=== PATIENT | female | born 1980 | race Two or more races ===

== ENCOUNTER 2023-03-19 15:11 | Inpatient (IN) | payer MEDICAID ==
[~2023-03-19] VITALS: Ht 160 cm; Wt 68.0 kg
[2023-03-19] MEDS ORDERED: IV NS 0.9% 1,000 ML BAG IV ONE (16:00)
[2023-03-19 16:24] LABS: BASOPHILS % (AUTO) 0.4 % (0.0-2.0); EOSINOPHILS % (AUTO) 5.1 % (0.0-6.0); HEMATOCRIT 26 % (33-45); HEMOGLOBIN 8.2 g/dL (11.5-14.8); LYMPHOCYTES # (AUTO) 0.9 K/uL (0.8-4.8); LYMPHOCYTES % (AUTO) 11.5 % (20.0-44.0); MEAN CORPUSCULAR HGB CONC 32 g/dl (31.0-36.0); MEAN CORPUSCULAR VOLUME 93 fL (82-100); MONOCYTES # (AUTO) 0.4 K/uL (0.1-1.30); MONOCYTES % (AUTO) 5.5 % (2.0-12.0); NEUTROPHILS # (AUTO) 6.2 K/uL (1.8-8.9); NEUTROPHILS % (AUTO) 77.5 % (43.0-81.0); PLATELET COUNT (AUTO) 369 K/uL (150-450); RED BLOOD CELL COUNT(AUTO) 2.75 MIL/uL (4.0-5.2); WHITE BLOOD COUNT (AUTO) 8.1 K/uL (4.3-11.0)
[2023-03-19] MEDS ORDERED: Magnesium 1GM/D5W 100ML PREMIX 100 ML IV ONE (16:37)
[2023-03-19] MEDS: Magnesium 1GM/D5W 100ML PREMIX 100 ML IV SCH ×3 (16:40→17:05)
[2023-03-19 16:51] LABS: ALANINE AMINOTRANSFERASE 55 U/L (12-78); ALBUMIN 1.6 g/dL (3.4-5.0); ALKALINE PHOSPHATASE 651 U/L (46-116); ASPARTATE AMINOTRANSFERASE 77 U/L (15-37); BILIRUBIN,DIRECT 0.4 mg/dL (0.0-0.2); BILIRUBIN,TOTAL 0.8 mg/dL (0.2-1.0); CALCIUM, SERUM 8.7 mg/dL (8.5-10.1); CARBON DIOXIDE 29 mmol/L (21-32); CHLORIDE 116 mmol/L (98-107); CREATININE 2.4 mg/dL (0.6-1.3); GLUCOSE 211 mg/dL (74-106); POTASSIUM 4.3 mmol/L (3.5-5.1); SODIUM SERUM 153 mmol/L (136-145); TOTAL PROTEIN, SERUM 6.4 g/dL (6.4-8.2); UREA NITROGEN, BLOOD 71 mg/dL (7-18)
[2023-03-19 16:57] LABS: MAGNESIUM 2.7 mg/dL (1.8-2.4)
[2023-03-19 16:58] LABS: THYROID STIMULATING HORMONE 4.893 uIU/mL (0.358-3.74)
[2023-03-19] MEDS ORDERED: CEFEPIME 1 GM in IV D5W 50 ML IV ONE ×2 (17:00→21:00)
[2023-03-19] MEDS ORDERED: VANCOMYCIN 1 GM in IV D5W 250 ML IV ONE (17:00)
[2023-03-19] MEDS ORDERED: ACETAMINOPHEN ES 500 MG TABLET GT ONE (17:00)
[2023-03-19] MEDS ORDERED: MAGN400T26 PO (17:24)
[2023-03-19] MEDS ORDERED: CARV6.252 PO (17:24)
[2023-03-19] MEDS ORDERED: BUME1TAB9 PO (17:24)
[2023-03-19] MEDS ORDERED: FERR325T23 PO (17:24)
[2023-03-19] MEDS ORDERED: AMLO5TAB4 PO (17:24)
[2023-03-19] MEDS ORDERED: FURO-145 PO (17:24)
[2023-03-19] MEDS ORDERED: HUM10VIA SQ ×2 (17:30)
[2023-03-19 17:43] LABS: BAND % (MANUAL) 6 % (0.0-5.0); EOSINOPHILS % (MANUAL) 3 % (0-4); LYMPHOCYTES % (MANUAL) 18 % (16-48); MONOCYTES % (MANUAL) 3 % (0-11.0); NEUTROPHILS % (MANUAL) 70 (42-76)
[2023-03-19 18:10] LABS: BILIRUBIN,URINE NEGATIVE (NEGATIVE); COLOR,URINE YELLOW (YELLOW); LEUKOCYTE ESTERASE ,URINE TRACE (NEGATIVE); NITRITE, URINE NEGATIVE (NEGATIVE); PH,URINE 6.5 (5.0-8.0); PROTEIN,URINE 3+ mg/dl (NEGATIVE); UGLUCOSE NEGATIVE (NEGATIVE)
[2023-03-19 18:23] LABS: BACTERIA,URINE 1+ /HPF (None Seen); YEAST,URINE Moderate /HPF (None Seen)
[2023-03-19 18:24] LABS: COARSE GRANULAR CASTS,URINE Few /LPF (None Seen); FINE GRANULAR CASTS,URINE RARE /LPF (None Seen)
[2023-03-19] MEDS ORDERED: ACETAMINOPHEN 325 MG TABLET PO PRN (18:30)
[2023-03-19] MEDS ORDERED: DEXTROSE 50%-WATER 50 ML DISP.SYRIN IV PRN (18:30)
[2023-03-19] MEDS ORDERED: *INSULIN REGULAR(HUMULIN R)HUM 100 UNIT/ML VIAL SQ PRN (18:30)
[2023-03-19] MEDS ORDERED: ONDANSETRON HCL/PF 4 MG/2 ML VIAL IVP PRN (18:30)
[2023-03-19] MEDS ORDERED: INSULIN REGULAR, HUMAN 100 UNIT/ML 3 ML VIAL SQ PRN (18:30)
[2023-03-19] MEDS ORDERED: IV D5/0.45 NACL 1,000 ML IV PRN (18:30)
[2023-03-19] MEDS ORDERED: MAGNESIUM HYDROXIDE 30 ML UDC PO PRN (18:30)
[2023-03-19] MEDS ORDERED: Z GUARD REMEDY 4 OZ OINT TP PRN (18:30)
[2023-03-19] MEDS ORDERED: MAG HYDROX/AL HYDROX/SIMETH 30 ML UDC PO PRN (18:30)
[2023-03-19 21:00] VITALS: BP 146/80; TEMP 99.4; O2SAT 95
[2023-03-19 21:50] VITALS: BP 146/80; TEMP 99.4; O2SAT 95
[2023-03-19] MEDS: ENOXAPARIN SODIUM 30 MG/0.3 ML DISP.SYRIN SQ SCH (22:07)
[2023-03-19] MEDS: BLOOD SUGAR DIAGNOSTIC 1 EACH STRIP VI SCH (22:40)
[2023-03-20] VITALS: BP 150/80; TEMP 99; O2SAT 95
[2023-03-20] MEDS ORDERED: PHARMACY TO CHANGE PO MEDS TO GT/NG XX PRN (02:00)
[2023-03-20] MEDS ORDERED: MAGNESIUM HYDROXIDE 30 ML UDC GT PRN (02:13)
[2023-03-20] MEDS ORDERED: MAG HYDROX/AL HYDROX/SIMETH 30 ML UDC GT PRN (02:14)
[2023-03-20] MEDS ORDERED: ACETAMINOPHEN 650 MG/20.3 ML UDC PO PRN (02:30)
[2023-03-20 04:00] VITALS: BP 157/69; TEMP 97.8; O2SAT 97
[2023-03-20 06:00] LABS: BASOPHILS % (AUTO) 0.5 % (0.0-2.0); EOSINOPHILS % (AUTO) 5.8 % (0.0-6.0); HEMATOCRIT 26 % (33-45); HEMOGLOBIN 8.2 g/dL (11.5-14.8); LYMPHOCYTES # (AUTO) 0.8 K/uL (0.8-4.8); LYMPHOCYTES % (AUTO) 9.3 % (20.0-44.0); MEAN CORPUSCULAR HGB CONC 32 g/dl (31.0-36.0); MEAN CORPUSCULAR VOLUME 94 fL (82-100); MONOCYTES # (AUTO) 0.3 K/uL (0.1-1.30); MONOCYTES % (AUTO) 3.9 % (2.0-12.0); NEUTROPHILS # (AUTO) 6.6 K/uL (1.8-8.9); NEUTROPHILS % (AUTO) 80.5 % (43.0-81.0); PLATELET COUNT (AUTO) 366 K/uL (150-450); RED BLOOD CELL COUNT(AUTO) 2.77 MIL/uL (4.0-5.2); WHITE BLOOD COUNT (AUTO) 8.2 K/uL (4.3-11.0)
[2023-03-20 06:19] LABS: CALCIUM, SERUM 8.7 mg/dL (8.5-10.1); CREATININE 2.3 mg/dL (0.6-1.3); MAGNESIUM 2.6 mg/dL (1.8-2.4); PHOSPHORUS 3.9 mg/dL (2.5-4.9); POTASSIUM 4.2 mmol/L (3.5-5.1)
[2023-03-20 07:00] VITALS: BP 170/82; TEMP 99.5; O2SAT 95
[2023-03-20] MEDS ORDERED: GLUCERNA 1.2 1,000 ML BOTTLE GT SCH (07:00)
[2023-03-20] MEDS: BLOOD SUGAR DIAGNOSTIC 1 EACH STRIP VI SCH (07:06)
[2023-03-20] MEDS: AMLODIPINE BESYLATE 5 MG TABLET GT SCH (09:21)
[2023-03-20] MEDS: CARVEDILOL 6.25 MG TABLET GT SCH ×2 (09:21→17:06)
[2023-03-20 11:09] LABS: ALBUMIN 1.6 g/dL (3.4-5.0); BILIRUBIN,DIRECT 0.4 mg/dL (0.0-0.2); PHOSPHORUS 3.9 mg/dL (2.5-4.9); TOTAL PROTEIN, SERUM 6.3 g/dL (6.4-8.2)
[2023-03-20] MEDS ORDERED: IV NS 0.9% 1,000 ML IV PRN (11:30)
[2023-03-20 12:00] VITALS: BP 156/74; TEMP 99.1; O2SAT 94
[2023-03-20] MEDS ORDERED: DEXTROSE 50%-WATER 50 ML DISP.SYRIN IV PRN (12:00)
[2023-03-20] MEDS: BLOOD SUGAR DIAGNOSTIC 1 EACH STRIP IN SCH ×3 (12:46→23:59)
[2023-03-20] MEDS: INSULIN REGULAR, HUMAN 100 UNIT/ML 3 ML VIAL SQ PRN ×2 (12:48→17:31)
[2023-03-20] MEDS ORDERED: IV 1/2NS 1000 ML 1,000 ML IV PRN ×2 (15:30)
[2023-03-20 16:00] VITALS: BP 146/77; TEMP 99; O2SAT 94
[2023-03-20] MEDS: CEFEPIME 2 GM in IV D5W 100 ML IV SCH (17:09)
[2023-03-20] MEDS: VANCOMYCIN HCL 0.75 GM in IV D5W 250 ML IV SCH (18:46)
[2023-03-20 20:00] VITALS: BP 107/59; TEMP 98.2; O2SAT 96
[2023-03-20] MEDS: ENOXAPARIN SODIUM 30 MG/0.3 ML DISP.SYRIN SQ SCH (21:53)
[2023-03-20] MEDS ORDERED: INSULIN NPH/REG 70/30 MIX INJ 100 UNIT/ML VIAL SQ SCH (22:00)
[2023-03-21] MEDS: FLUCONAZOLE (100 MG) 100 MG TABLET PO SCH ×2 (00:12→08:33)
[2023-03-21] MEDS: INSULIN REGULAR, HUMAN 100 UNIT/ML 3 ML VIAL SQ PRN ×4 (00:46→17:50)
[2023-03-21 05:00] VITALS: BP 162/79; TEMP 98; O2SAT 95
[2023-03-21 05:49] LABS: BASOPHILS # (AUTO) 0.1 K/uL (0.0-0.2); BASOPHILS % (AUTO) 0.8 % (0.0-2.0); EOSINOPHILS % (AUTO) 4.9 % (0.0-6.0); HEMATOCRIT 24 % (33-45); HEMOGLOBIN 7.8 g/dL (11.5-14.8); LYMPHOCYTES # (AUTO) 0.8 K/uL (0.8-4.8); LYMPHOCYTES % (AUTO) 9.9 % (20.0-44.0); MEAN CORPUSCULAR HGB CONC 32 g/dl (31.0-36.0); MEAN CORPUSCULAR VOLUME 93 fL (82-100); MONOCYTES # (AUTO) 0.4 K/uL (0.1-1.30); MONOCYTES % (AUTO) 4.5 % (2.0-12.0); NEUTROPHILS # (AUTO) 6.3 K/uL (1.8-8.9); NEUTROPHILS % (AUTO) 79.9 % (43.0-81.0); PLATELET COUNT (AUTO) 352 K/uL (150-450); WHITE BLOOD COUNT (AUTO) 7.9 K/uL (4.3-11.0)
[2023-03-21 06:02] LABS: ALBUMIN 1.5 g/dL (3.4-5.0); BILIRUBIN,TOTAL 0.8 mg/dL (0.2-1.0); CALCIUM, SERUM 8.6 mg/dL (8.5-10.1); CREATININE 2.3 mg/dL (0.6-1.3); MAGNESIUM 2.6 mg/dL (1.8-2.4); PHOSPHORUS 3.6 mg/dL (2.5-4.9); POTASSIUM 3.9 mmol/L (3.5-5.1); TOTAL PROTEIN, SERUM 6.1 g/dL (6.4-8.2)
[2023-03-21 07:00] VITALS: BP 129/71; TEMP 99; O2SAT 94
[2023-03-21] MEDS: BLOOD SUGAR DIAGNOSTIC 1 EACH STRIP IN SCH ×4 (07:50→23:40)
[2023-03-21] MEDS: AMLODIPINE BESYLATE 5 MG TABLET GT SCH (08:33)
[2023-03-21] MEDS: CARVEDILOL 6.25 MG TABLET GT SCH (08:33)
[2023-03-21] MEDS ORDERED: CARVEDILOL 6.25 MG TABLET GT SCH (09:00)
[2023-03-21] MEDS ORDERED: CARVEDILOL 6.25 MG TABLET PO ONE (11:00)
[2023-03-21] MEDS ORDERED: CARVEDILOL 6.25 MG TABLET GT ONE (11:00)
[2023-03-21 11:07] LABS: *ANA ANTI-CENTROMERE B AB <0.2 AI (0.0-0.9); *ANA ANTI-DNA(DS) AB, QN <1 IU/mL (0-9); *ANA ANTI-JO-1 <0.2 AI (0.0-0.9); *ANA ANTICHROMATIN ANTIBODY <0.2 AI (0.0-0.9); *ANA RNP ANTIBODIES 0.4 AI (0.0-0.9); *ANA SJOGREN'S ANTI-SS-A <0.2 AI (0.0-0.9); *ANA SJOGREN'S ANTI-SS-B <0.2 AI (0.0-0.9); *ANAANTI-SCLERODERMA-70 AB <0.2 AI (0.0-0.9); *ANASMITH AB <0.2 AI (0.0-0.9)
[2023-03-21 12:00] VITALS: BP 132/73; TEMP 99; O2SAT 94
[2023-03-21 16:00] VITALS: BP 134/72; TEMP 99; O2SAT 94
[2023-03-21] MEDS ORDERED: IV 1/2NS 1000 ML 1,000 ML IV PRN (16:00)
[2023-03-21 16:05] LABS: BILIRUBIN,URINE NEGATIVE (NEGATIVE); COLOR,URINE YELLOW (YELLOW); LEUKOCYTE ESTERASE ,URINE TRACE (NEGATIVE); NITRITE, URINE NEGATIVE (NEGATIVE); PH,URINE 5.5 (5.0-8.0); PROTEIN,URINE 3+ mg/dl (NEGATIVE); UGLUCOSE NEGATIVE (NEGATIVE); UROBILINOGEN,URINE 0.2 EU/dL (0.2)
[2023-03-21 16:15] LABS: CREATININE, URINE 100.1 MG/DL (30.0-125.0)
[2023-03-21 16:27] LABS: BACTERIA,URINE Few /HPF (None Seen); FINE GRANULAR CASTS,URINE Few /LPF (None Seen); MUCUS,URINE Few /LPF (None Seen)
[2023-03-21] MEDS: CARVEDILOL 12.5 MG TABLET GT SCH (17:21)
[2023-03-21] MEDS: CEFEPIME 2 GM in IV D5W 100 ML IV SCH (17:21)
[2023-03-21] MEDS: GLUCERNA 1.2 1,000 ML BOTTLE GT SCH (17:55)
[2023-03-21] MEDS: VANCOMYCIN HCL 0.75 GM in IV D5W 250 ML IV SCH (18:18)
[2023-03-21 20:00] VITALS: BP 127/69; TEMP 98; O2SAT 99
[2023-03-21] MEDS: ENOXAPARIN SODIUM 30 MG/0.3 ML DISP.SYRIN SQ SCH (21:26)
[2023-03-21] MEDS: INSULIN NPH/REG 70/30 MIX INJ 100 UNIT/ML CARTRIDGE SQ SCH (23:47)
[2023-03-22] VITALS (7 sets, daily range): BP systolic 132–142; BP diastolic 64–77; TEMP 98.4–99.7; O2SAT 95–100
[2023-03-22] MEDS: BLOOD SUGAR DIAGNOSTIC 1 EACH STRIP IN SCH ×3 (05:32→18:00)
[2023-03-22] MEDS: INSULIN REGULAR, HUMAN 100 UNIT/ML 3 ML VIAL SQ PRN ×3 (05:35→18:08)
[2023-03-22 05:52] LABS: BASOPHILS % (AUTO) 0.4 % (0.0-2.0); EOSINOPHILS % (AUTO) 6.8 % (0.0-6.0); HEMATOCRIT 24 % (33-45); HEMOGLOBIN 7.7 g/dL (11.5-14.8); LYMPHOCYTES # (AUTO) 0.8 K/uL (0.8-4.8); LYMPHOCYTES % (AUTO) 10.5 % (20.0-44.0); MEAN CORPUSCULAR HGB CONC 32 g/dl (31.0-36.0); MEAN CORPUSCULAR VOLUME 94 fL (82-100); MONOCYTES # (AUTO) 0.4 K/uL (0.1-1.30); MONOCYTES % (AUTO) 4.8 % (2.0-12.0); NEUTROPHILS # (AUTO) 5.8 K/uL (1.8-8.9); NEUTROPHILS % (AUTO) 77.5 % (43.0-81.0); PLATELET COUNT (AUTO) 351 K/uL (150-450); RED BLOOD CELL COUNT(AUTO) 2.57 MIL/uL (4.0-5.2); WHITE BLOOD COUNT (AUTO) 7.5 K/uL (4.3-11.0)
[2023-03-22 06:27] LABS: CALCIUM, SERUM 8.5 mg/dL (8.5-10.1); IRON, SERUM 43 ug/dl (50-175); MAGNESIUM 2.7 mg/dL (1.8-2.4); PHOSPHORUS 4.1 mg/dL (2.5-4.9); POTASSIUM 4.2 mmol/L (3.5-5.1); TOTAL IRON BINDING CAPACITY 195 ug/dl (250-450)
[2023-03-22] MEDS ORDERED: IV 1/2NS 1000 ML 1,000 ML IV PRN (08:30)
[2023-03-22] MEDS: CARVEDILOL 12.5 MG TABLET GT SCH ×2 (09:18→16:36)
[2023-03-22] MEDS: FLUCONAZOLE (100 MG) 100 MG TABLET PO SCH (09:18)
[2023-03-22] MEDS: AMLODIPINE BESYLATE 5 MG TABLET GT SCH (09:19)
[2023-03-22] MEDS: CEFEPIME 2 GM in IV D5W 100 ML IV SCH (16:36)
[2023-03-22] MEDS: ENOXAPARIN SODIUM 30 MG/0.3 ML DISP.SYRIN SQ SCH (21:48)
[2023-03-22] MEDS: INSULIN NPH/REG 70/30 MIX INJ 100 UNIT/ML CARTRIDGE SQ SCH (22:31)
[2023-03-23] VITALS: BP 133/53; TEMP 98; O2SAT 97
[2023-03-23] MEDS: INSULIN REGULAR, HUMAN 100 UNIT/ML 3 ML VIAL SQ PRN ×4 (00:35→17:38)
[2023-03-23] MEDS: BLOOD SUGAR DIAGNOSTIC 1 EACH STRIP IN SCH ×5 (00:35→23:54)
[2023-03-23 04:00] VITALS: BP 143/70; TEMP 97.8; O2SAT 100
[2023-03-23 05:07] VITALS: BP 143/70; TEMP 97.8; O2SAT 100
[2023-03-23 05:49] LABS: BASOPHILS % (AUTO) 0.3 % (0.0-2.0); HEMATOCRIT 24 % (33-45); HEMOGLOBIN 7.6 g/dL (11.5-14.8); LYMPHOCYTES % (AUTO) 12.4 % (20.0-44.0); MEAN CORPUSCULAR HGB CONC 32 g/dl (31.0-36.0); MEAN CORPUSCULAR VOLUME 95 fL (82-100); MONOCYTES # (AUTO) 0.4 K/uL (0.1-1.30); MONOCYTES % (AUTO) 5.8 % (2.0-12.0); NEUTROPHILS # (AUTO) 5.9 K/uL (1.8-8.9); NEUTROPHILS % (AUTO) 76.5 % (43.0-81.0); PLATELET COUNT (AUTO) 385 K/uL (150-450); RED BLOOD CELL COUNT(AUTO) 2.49 MIL/uL (4.0-5.2); WHITE BLOOD COUNT (AUTO) 7.7 K/uL (4.3-11.0)
[2023-03-23 06:19] LABS: CALCIUM, SERUM 8.6 mg/dL (8.5-10.1); MAGNESIUM 2.8 mg/dL (1.8-2.4); PHOSPHORUS 4.3 mg/dL (2.5-4.9); POTASSIUM 5.2 mmol/L (3.5-5.1)
[2023-03-23] MEDS ORDERED: SODIUM POLYSTYRENE SULF. PWD 15 GM UDC PO ONE (08:00)
[2023-03-23 08:29] VITALS: BP 147/70; TEMP 98.3; O2SAT 96
[2023-03-23] MEDS: FLUCONAZOLE (100 MG) 100 MG TABLET PO SCH (09:01)
[2023-03-23] MEDS: AMLODIPINE BESYLATE 5 MG TABLET GT SCH (09:02)
[2023-03-23] MEDS: CARVEDILOL 12.5 MG TABLET GT SCH ×2 (09:03→17:03)
[2023-03-23] MEDS: PROSOURCE / PROSTAT (PYXIS) 30 ML UDC GT SCH (09:03)
[2023-03-23] MEDS ORDERED: IV D5/0.45 NACL 1,000 ML IV PRN (11:30)
[2023-03-23 13:47] LABS: BASOPHILS % (MANUAL) 0 % (0.0-2.0); EOSINOPHILS % (MANUAL) 2 % (0-4); LYMPHOCYTES % (MANUAL) 14 % (16-48); MONOCYTES % (MANUAL) 5 % (0-11.0); NEUTROPHILS % (MANUAL) 79 (42-76)
[2023-03-23] MEDS: MODAFINIL 100 MG TABLET PO SCH (14:44)
[2023-03-23 16:17] VITALS: BP 144/73; TEMP 98.4; O2SAT 96
[2023-03-23] MEDS: CEFEPIME 2 GM in IV D5W 100 ML IV SCH (16:55)
[2023-03-23 20:00] VITALS: BP 142/71; TEMP 98.5; O2SAT 98
[2023-03-23] MEDS: ENOXAPARIN SODIUM 30 MG/0.3 ML DISP.SYRIN SQ SCH (21:00)
[2023-03-23] MEDS: INSULIN NPH/REG 70/30 MIX INJ 100 UNIT/ML CARTRIDGE SQ SCH (21:39)
[2023-03-23] MEDS: GLUCERNA 1.2 1,000 ML BOTTLE GT SCH (22:27)
[2023-03-24] MEDS: BLOOD SUGAR DIAGNOSTIC 1 EACH STRIP IN SCH ×3 (05:41→17:11)
[2023-03-24] MEDS: INSULIN REGULAR, HUMAN 100 UNIT/ML 3 ML VIAL SQ PRN ×4 (05:45→18:32)
[2023-03-24 07:00] VITALS: BP 152/78; TEMP 98.1; O2SAT 88
[2023-03-24 07:21] LABS: BASOPHILS % (AUTO) 0.5 % (0.0-2.0); EOSINOPHILS % (AUTO) 3.7 % (0.0-6.0); HEMATOCRIT 24 % (33-45); HEMOGLOBIN 7.5 g/dL (11.5-14.8); LYMPHOCYTES % (AUTO) 11.1 % (20.0-44.0); MEAN CORPUSCULAR HGB CONC 31 g/dl (31.0-36.0); MEAN CORPUSCULAR VOLUME 96 fL (82-100); MONOCYTES # (AUTO) 0.4 K/uL (0.1-1.30); MONOCYTES % (AUTO) 4.2 % (2.0-12.0); NEUTROPHILS % (AUTO) 80.5 % (43.0-81.0); PLATELET COUNT (AUTO) 371 K/uL (150-450); RED BLOOD CELL COUNT(AUTO) 2.54 MIL/uL (4.0-5.2); WHITE BLOOD COUNT (AUTO) 8.7 K/uL (4.3-11.0)
[2023-03-24 07:43] LABS: CALCIUM, SERUM 8.8 mg/dL (8.5-10.1); MAGNESIUM 2.9 mg/dL (1.8-2.4); PHOSPHORUS 4.3 mg/dL (2.5-4.9); POTASSIUM 4.1 mmol/L (3.5-5.1)
[2023-03-24] MEDS: CARVEDILOL 12.5 MG TABLET GT SCH ×2 (08:42→16:24)
[2023-03-24] MEDS: AMLODIPINE BESYLATE 5 MG TABLET GT SCH (08:42)
[2023-03-24] MEDS: PROSOURCE / PROSTAT (PYXIS) 30 ML UDC GT SCH (08:44)
[2023-03-24] MEDS: FLUCONAZOLE (100 MG) 100 MG TABLET PO SCH (08:48)
[2023-03-24] MEDS: MODAFINIL 100 MG TABLET PO SCH (08:54)
[2023-03-24] MEDS: ACETAMINOPHEN 650 MG/20.3 ML UDC GT PRN (15:17)
[2023-03-24 16:00] VITALS: BP 138/83; TEMP 98.9; O2SAT 96
[2023-03-24] MEDS: CEFEPIME 2 GM in IV D5W 100 ML IV SCH (16:12)
[2023-03-24] MEDS: GLUCERNA 1.2 1,000 ML BOTTLE GT SCH (18:01)
[2023-03-24] MEDS: ENOXAPARIN SODIUM 30 MG/0.3 ML DISP.SYRIN SQ SCH (21:00)
[2023-03-24] MEDS: INSULIN NPH/REG 70/30 MIX INJ 100 UNIT/ML CARTRIDGE SQ SCH (22:39)
[2023-03-25] MEDS: BLOOD SUGAR DIAGNOSTIC 1 EACH STRIP IN SCH ×4 (00:18→17:31)
[2023-03-25] MEDS: INSULIN REGULAR, HUMAN 100 UNIT/ML 3 ML VIAL SQ PRN ×5 (00:20→17:33)
[2023-03-25 06:08] LABS: CALCIUM, SERUM 8.5 mg/dL (8.5-10.1); POTASSIUM 4.2 mmol/L (3.5-5.1)
[2023-03-25 07:00] VITALS: BP 128/62; TEMP 98.9; O2SAT 99
[2023-03-25] MEDS: MODAFINIL 100 MG TABLET PO SCH (08:58)
[2023-03-25] MEDS: PROSOURCE / PROSTAT (PYXIS) 30 ML UDC GT SCH (08:58)
[2023-03-25] MEDS: AMLODIPINE BESYLATE 5 MG TABLET GT SCH (08:58)
[2023-03-25] MEDS: FLUCONAZOLE (100 MG) 100 MG TABLET PO SCH (08:58)
[2023-03-25] MEDS: CARVEDILOL 12.5 MG TABLET GT SCH ×2 (08:59→16:03)
[2023-03-25] MEDS ORDERED: FUROSEMIDE 40 MG/4 ML VIAL IV ONE (10:30)
[2023-03-25] MEDS: GLUCERNA 1.2 1,000 ML BOTTLE GT SCH (13:45)
[2023-03-25 16:00] VITALS: BP 126/65; TEMP 97.8; O2SAT 96
[2023-03-25] MEDS: CEFEPIME 2 GM in IV D5W 100 ML IV SCH (16:03)
[2023-03-25 20:00] VITALS: BP 124/60; TEMP 100; O2SAT 95
[2023-03-25] MEDS: ACETAMINOPHEN 650 MG/20.3 ML UDC GT PRN (20:46)
[2023-03-25] MEDS: INSULIN NPH/REG 70/30 MIX INJ 100 UNIT/ML CARTRIDGE SQ SCH (21:57)
[2023-03-25] MEDS: ENOXAPARIN SODIUM 30 MG/0.3 ML DISP.SYRIN SQ SCH (21:58)
[2023-03-26] VITALS (10 sets, daily range): BP systolic 128–138; BP diastolic 60–67; TEMP 95.4–99.1; O2SAT 67–93
[2023-03-26] MEDS: INSULIN REGULAR, HUMAN 100 UNIT/ML 3 ML VIAL SQ PRN ×4 (00:47→17:22)
[2023-03-26] MEDS: BLOOD SUGAR DIAGNOSTIC 1 EACH STRIP IN SCH ×4 (00:47→17:18)
[2023-03-26 06:18] LABS: BASOPHILS % (AUTO) 0.5 % (0.0-2.0); EOSINOPHILS % (AUTO) 6.1 % (0.0-6.0); HEMATOCRIT 21 % (33-45); LYMPHOCYTES % (AUTO) 11.3 % (20.0-44.0); MEAN CORPUSCULAR HGB CONC 32 g/dl (31.0-36.0); MEAN CORPUSCULAR VOLUME 96 fL (82-100); MONOCYTES # (AUTO) 0.4 K/uL (0.1-1.30); MONOCYTES % (AUTO) 4.1 % (2.0-12.0); NEUTROPHILS # (AUTO) 6.7 K/uL (1.8-8.9); PLATELET COUNT (AUTO) 311 K/uL (150-450); RED BLOOD CELL COUNT(AUTO) 2.22 MIL/uL (4.0-5.2); WHITE BLOOD COUNT (AUTO) 8.6 K/uL (4.3-11.0)
[2023-03-26 06:21] LABS: CALCIUM, SERUM 8.6 mg/dL (8.5-10.1); CREATININE 2.1 mg/dL (0.6-1.3); MAGNESIUM 2.9 mg/dL (1.8-2.4); PHOSPHORUS 4.6 mg/dL (2.5-4.9); POTASSIUM 4.3 mmol/L (3.5-5.1)
[2023-03-26 06:25] LABS: HEMOGLOBIN 6.7 g/dL (11.5-14.8)
[2023-03-26] MEDS: GLUCERNA 1.2 1,000 ML BOTTLE GT SCH (07:35)
[2023-03-26 09:22] LABS: BAND % (MANUAL) 3 % (0.0-5.0); EOSINOPHILS % (MANUAL) 7 % (0-4); LYMPHOCYTES % (MANUAL) 11 % (16-48); MONOCYTES % (MANUAL) 5 % (0-11.0); NEUTROPHILS % (MANUAL) 74 (42-76)
[2023-03-26] MEDS: AMLODIPINE BESYLATE 5 MG TABLET GT SCH (09:37)
[2023-03-26] MEDS: PROSOURCE / PROSTAT (PYXIS) 30 ML UDC GT SCH (09:37)
[2023-03-26] MEDS: FLUCONAZOLE (100 MG) 100 MG TABLET PO SCH (09:37)
[2023-03-26] MEDS: CARVEDILOL 12.5 MG TABLET GT SCH ×2 (09:38→17:18)
[2023-03-26] MEDS: MODAFINIL 100 MG TABLET PO SCH (09:39)
[2023-03-26] MEDS ORDERED: POTASSIUM CHLORIDE 10 MEQ/50 ML PREMIXED IVPB FOR PERIPHERAL LINE IV SCH (10:00)
[2023-03-26 13:12] LABS: *ANA ANTI-CENTROMERE B AB <0.2 AI (0.0-0.9); *ANA ANTI-DNA(DS) AB, QN <1 IU/mL (0-9); *ANA ANTI-JO-1 <0.2 AI (0.0-0.9); *ANA ANTICHROMATIN ANTIBODY <0.2 AI (0.0-0.9); *ANA RNP ANTIBODIES 1.9 AI (0.0-0.9); *ANA SJOGREN'S ANTI-SS-A <0.2 AI (0.0-0.9); *ANA SJOGREN'S ANTI-SS-B <0.2 AI (0.0-0.9); *ANAANTI-SCLERODERMA-70 AB <0.2 AI (0.0-0.9); *ANASMITH AB <0.2 AI (0.0-0.9)
[2023-03-26] MEDS ORDERED: EPOETIN ALFA-EPBX 10,000 UNIT/ML VIAL SQ SCH (15:00)
[2023-03-26] MEDS ORDERED: POTASSIUM CHLORIDE 20 MEQ TAB.PRT.SR PO ONE (17:00)
[2023-03-26] MEDS: CEFEPIME 2 GM in IV D5W 100 ML IV SCH (17:06)
[2023-03-26] MEDS: ACETAMINOPHEN 650 MG/20.3 ML UDC GT PRN (20:28)
[2023-03-26] MEDS: ENOXAPARIN SODIUM 30 MG/0.3 ML DISP.SYRIN SQ SCH (21:00)
[2023-03-26] MEDS: INSULIN NPH/REG 70/30 MIX INJ 100 UNIT/ML CARTRIDGE SQ SCH (22:42)
[2023-03-27] VITALS (7 sets, daily range): BP systolic 128–157; BP diastolic 67–96; TEMP 98.3–99.4; O2SAT 96–100
[2023-03-27] MEDS: INSULIN REGULAR, HUMAN 100 UNIT/ML 3 ML VIAL SQ PRN ×4 (00:33→17:34)
[2023-03-27] MEDS: BLOOD SUGAR DIAGNOSTIC 1 EACH STRIP IN SCH ×4 (00:34→17:32)
[2023-03-27] MEDS: GLUCERNA 1.2 1,000 ML BOTTLE GT SCH (04:18)
[2023-03-27] MEDS ORDERED: EPOETIN ALFA-EPBX 10,000 UNIT/ML VIAL SQ SCH (06:54)
[2023-03-27 07:33] LABS: BASOPHILS % (AUTO) 0.3 % (0.0-2.0); HEMATOCRIT 26 % (33-45); HEMOGLOBIN 8.4 g/dL (11.5-14.8); LYMPHOCYTES # (AUTO) 0.8 K/uL (0.8-4.8); LYMPHOCYTES % (AUTO) 9.2 % (20.0-44.0); MEAN CORPUSCULAR HGB CONC 32 g/dl (31.0-36.0); MEAN CORPUSCULAR VOLUME 94 fL (82-100); MONOCYTES # (AUTO) 0.4 K/uL (0.1-1.30); MONOCYTES % (AUTO) 4.4 % (2.0-12.0); NEUTROPHILS # (AUTO) 6.8 K/uL (1.8-8.9); NEUTROPHILS % (AUTO) 80.1 % (43.0-81.0); PLATELET COUNT (AUTO) 286 K/uL (150-450); RED BLOOD CELL COUNT(AUTO) 2.78 MIL/uL (4.0-5.2); WHITE BLOOD COUNT (AUTO) 8.5 K/uL (4.3-11.0)
[2023-03-27 07:46] LABS: CREATININE 2.3 mg/dL (0.6-1.3); MAGNESIUM 3.1 mg/dL (1.8-2.4); PHOSPHORUS 4.5 mg/dL (2.5-4.9); POTASSIUM 4.8 mmol/L (3.5-5.1)
[2023-03-27] MEDS: FLUCONAZOLE (100 MG) 100 MG TABLET PO SCH (08:39)
[2023-03-27] MEDS: PROSOURCE / PROSTAT (PYXIS) 30 ML UDC GT SCH (08:39)
[2023-03-27] MEDS: MODAFINIL 100 MG TABLET PO SCH (08:39)
[2023-03-27] MEDS: AMLODIPINE BESYLATE 5 MG TABLET GT SCH (08:39)
[2023-03-27] MEDS: CARVEDILOL 12.5 MG TABLET GT SCH ×2 (08:40→17:24)
[2023-03-27] MEDS ORDERED: AMOX600S16 PO (13:31)
[2023-03-27] MEDS: CEFEPIME 2 GM in IV D5W 100 ML IV SCH (17:32)
[2023-03-27] MEDS: ACETAMINOPHEN 650 MG/20.3 ML UDC GT PRN (17:49)
[2023-03-27] MEDS ORDERED: ENOXAPARIN SODIUM 30 MG/0.3 ML DISP.SYRIN SQ SCH (21:00)
[2023-03-27] MEDS: INSULIN NPH/REG 70/30 MIX INJ 100 UNIT/ML CARTRIDGE SQ SCH (22:42)
[2023-03-28] MEDS: BLOOD SUGAR DIAGNOSTIC 1 EACH STRIP IN SCH ×3 (00:03→12:16)
[2023-03-28] MEDS: INSULIN REGULAR, HUMAN 100 UNIT/ML 3 ML VIAL SQ PRN ×3 (00:05→12:36)
[2023-03-28] MEDS: GLUCERNA 1.2 1,000 ML BOTTLE GT SCH (01:46)
[2023-03-28 05:54] LABS: BASOPHILS % (AUTO) 0.4 % (0.0-2.0); EOSINOPHILS % (AUTO) 5.6 % (0.0-6.0); HEMATOCRIT 26 % (33-45); HEMOGLOBIN 8.4 g/dL (11.5-14.8); LYMPHOCYTES # (AUTO) 0.8 K/uL (0.8-4.8); LYMPHOCYTES % (AUTO) 10.8 % (20.0-44.0); MEAN CORPUSCULAR HGB CONC 32 g/dl (31.0-36.0); MEAN CORPUSCULAR VOLUME 95 fL (82-100); MONOCYTES # (AUTO) 0.3 K/uL (0.1-1.30); MONOCYTES % (AUTO) 4.3 % (2.0-12.0); NEUTROPHILS # (AUTO) 5.9 K/uL (1.8-8.9); NEUTROPHILS % (AUTO) 78.9 % (43.0-81.0); PLATELET COUNT (AUTO) 256 K/uL (150-450); RED BLOOD CELL COUNT(AUTO) 2.75 MIL/uL (4.0-5.2); WHITE BLOOD COUNT (AUTO) 7.5 K/uL (4.3-11.0)
[2023-03-28 06:17] LABS: CALCIUM, SERUM 8.9 mg/dL (8.5-10.1); CREATININE 2.4 mg/dL (0.6-1.3); MAGNESIUM 3.2 mg/dL (1.8-2.4); PHOSPHORUS 4.4 mg/dL (2.5-4.9); POTASSIUM 4.7 mmol/L (3.5-5.1)
[2023-03-28] MEDS ORDERED: KEY,NONCONTROL,TO KEEP IN PYXI 1 EA MC ONE (06:50)
[2023-03-28 08:30] VITALS: BP 141/63; TEMP 98.8; O2SAT 95
[2023-03-28] MEDS: PROSOURCE / PROSTAT (PYXIS) 30 ML UDC GT SCH (09:26)
[2023-03-28] MEDS: FLUCONAZOLE (100 MG) 100 MG TABLET PO SCH (09:26)
[2023-03-28] MEDS: MODAFINIL 100 MG TABLET PO SCH (09:26)
[2023-03-28] MEDS: CARVEDILOL 12.5 MG TABLET GT SCH (09:27)
[2023-03-28 09:28] VITALS: BP 141/63
[2023-03-28] MEDS: AMLODIPINE BESYLATE 5 MG TABLET GT SCH (09:28)
[2023-03-28] MEDS ORDERED: EPOETIN ALFA-EPBX 10,000 UNIT/ML VIAL SQ SCH (15:00)
[2023-03-29 08:07] LABS: COMPLEMENT C3, SERUM 179 mg/dL (82-167); COMPLEMENT C4, SERUM 36 mg/dL (12-38)
== END 2023-03-28 15:15 | DRG 137 ==
LOC: ER 15:19 → MED 20:21 → TELE 21:29 → MED 03-23 07:48
PROVIDERS: ADMIT Internal Medicine; ATTEND Nurse Practitioner Acute Care
PROC: 30233N1 Transfusion of Nonautologous Red Blood Cells into Peripheral Vein, Percutaneous Approach (ICD-10-PCS; principal; 2023-03-26)
DX: J69.0 Pneumonitis due to inhalation of food and vomit (principal); N17.0 Acute kidney failure with tubular necrosis; I21.A1 Myocardial infarction type 2; G93.41 Metabolic encephalopathy; I50.9 Heart failure, unspecified; I13.0 Hypertensive heart and chronic kidney disease with heart failure and stage 1 through stage 4 chronic kidney disease, or unspecified chronic kidney disease; E87.0 Hyperosmolality and hypernatremia; D62 Acute posthemorrhagic anemia; B37.49 Other urogenital candidiasis; R53.1 Weakness; J15.6 Pneumonia due to other Gram-negative bacteria; E11.22 Type 2 diabetes mellitus with diabetic chronic kidney disease; N18.9 Chronic kidney disease, unspecified; Z79.4 Long term (current) use of insulin; Z93.1 Gastrostomy status; I69.320 Aphasia following cerebral infarction; E78.5 Hyperlipidemia, unspecified; E86.1 Hypovolemia; E66.9 Obesity, unspecified; E86.0 Dehydration; R13.10 Dysphagia, unspecified; E11.65 Type 2 diabetes mellitus with hyperglycemia
CPT/HCPCS: 36415; 70450-TC; 71045-TC; 76770-TC; 80048-TC; 80053-TC; 80076-TC; 81001; 82533; 82570-TC; 82728-TC; 82962-TC; 83540-TC; 83605-TC; 83735-TC; 83880; 84100-TC; 84155; 84165; 84300-TC; 84439-TC; 84443-TC; 84484-TC; 84703-TC; 85025-TC; 86225; 86235; 86706; 86803; 86850-TC; 87040-TC; 87081-TC; 87086-TC; 92526; 92611-TC; 93307-TC; A4217; A4223; G0378; J0692; J0885; J1650; J1815; J1940; J3370; J3475; J3490; J7030; J7040; J7050; J7060; P9016